=== PATIENT | female | born 1930 | race Caucasian/White ===

== ENCOUNTER 2016-11-28 18:44 | Emergency (ER) | payer MEDICARE, OTHER ==
[~2016-11-28 18:44] MED LIST: ASAB PO; ASABAYER PO; BIST PO; C5 PO; CELEBREX2 PO; CELEXA20 PO; COUMADIN4 MG PO; DRONED400 PO; JANTOVEN5 MG PO; LIPITOR40 PO; LORTAB10 PO; MCZ25 PO; MIRALAXPKT PO; NEXIUM40 PO; NORCO1 TA1 PO; PROTONIX PO; STOOL SOFTEN100 MG PO; T PO; TOPXL25 PO; Toprol XL; XARELTO; XARELTO20 MG PO; ZYDONE1 TA2 PO
[2016-11-28 20:19] LABS: BASOPHILS 0.7 %; BASOPHILS ABSOLUTE 0.05 10/3/uL (0.0-0.16); EOSINOPHILS ABSOLUTE 0.14 10/3/uL (0.0-0.53); ER CBC TAT 0 Hrs 07 Mins; HEMATOCRIT 33.5 % (36.0-48.0); HEMOGLOBIN 11.3 g/dL (12.0-16.0); IMMATURE GRANULOCYTES 0.1 %; IMMATURE GRANULOCYTES ABSOLUTE 0.01 10/3/uL (0.0-0.11); LYMPHOCYTES 40.1 %; LYMPHOCYTES ABSOLUTE 2.82 10/3/uL (0.67-4.30); MEAN CORPUS HGB CONC 33.7 g/dL (32.0-36.0); MEAN CORPUSCULAR HEMOGLOB 31.8 pg (26.0-34.0); MEAN CORPUSCULAR VOLUME 94.4 fL (80-100); MEAN PLATELET VOLUME 9.9 fL (9.2-13.0); MONOCYTES 13.2 %; MONOCYTES ABSOLUTE 0.93 10/3/uL (0.21-1.20); NEUTROPHILS 43.9 %; NEUTROPHILS ABSOLUTE 3.09 10/3/uL (2.02-8.40); PLATELET COUNT 234 10/3/uL (150-400); RBC DISTRIBUTION WIDTH 18.2 % (12.0-16.0); RED CELL COUNT 3.55 10/6/uL (4.0-5.6)
[2016-11-28 20:22] LABS: MANUAL DIFF NO %
[2016-11-28 20:25] LABS: INTERNATIONAL NORMAL RATI 2.1 UNITS (-); PARTIAL THROMBO TIME 33.8 SEC (22.5-37.2)
[2016-11-28 20:31] LABS: ALBUMIN 3.9 G/DL (3.5-5.0); BUN (BLOOD UREA NITROGEN) 14 MG/DL (6-23); CALCIUM, SERUM 8.6 MG/DL (8.5-10.4); CHLORIDE, SERUM 109 MMOL/L (96-112); CO2 (CARBON DIOXIDE) 26 MMOL/L (24-34); CREATININE 0.92 MG/DL (0.55-1.02); GFR AFRICAN AMERICAN 66 ML/MIN (>=60); GFR NON AFRICAN AMERICAN 57 ML/MIN (>=60); GLUCOSE, SERUM 72 MG/DL (60-99); POTASSIUM, SERUM 3.9 MMOL/L (3.5-5.3); SGOT(AST) 19 U/L (5-40); SGPT(ALT) 20 U/L (5-65); SODIUM, SERUM 142 MMOL/L (135-148); TOTAL BILIRUBIN 0.7 MG/DL (0-1.2); TOTAL PROTEIN 6.8 G/DL (6.0-8.5)
[2016-11-28 20:32] LABS: A/G RATIO 1.3 (0.7-1.9); ALKALINE PHOSPHATASE 63 U/L (45-117); GLOBULIN 2.9 G/DL (2.5-4.1)
[2016-11-28 21:04] LABS: SED RATE 7 MM/HR (0-20)
== END 2016-11-28 21:34 | disposition home or self-care (01) ==
LOC: ER 18:44
PROVIDERS: Hospitalist
DX: S05.11XA Contusion of eyeball and orbital tissues, right eye, initial encounter (principal); I25.10 Atherosclerotic heart disease of native coronary artery without angina pectoris; K21.9 Gastro-esophageal reflux disease without esophagitis; Z79.899 Other long term (current) drug therapy; Z79.01 Long term (current) use of anticoagulants; X58.XXXA Exposure to other specified factors, initial encounter
CPT/HCPCS: 70450; 80053; 85025; 85610; 85652; 85730; 99284; A9270-GY